=== PATIENT | female | born 1935 ===

== ENCOUNTER 2024-06-26 13:41 | Day surgery (SDC) | payer BC ==
[2024-06-26] MEDS: IRON SUCROSE INJECTION 200 MG in SODIUM CHLORIDE 100 ML IVPB ONE (14:01)
[2024-06-26 16:38] VITALS: BP 112/53; PULSE 62; RESP 18; TEMP 98.5
== END 2024-06-26 15:00 | disposition home or self-care (01) ==
LOC: JONCCHEMO 13:41 → J7W 13:47 → JONCCHEMO 15:00
PROVIDERS: ATTEND Internal Medicine Hematology & Oncology
PROC: 3E033GC Introduction of Other Therapeutic Substance into Peripheral Vein, Percutaneous Approach (ICD-10-PCS; principal; 2024-06-26)
DX: D50.9 Iron deficiency anemia, unspecified (principal)
CPT/HCPCS: 96365; J1756

== ENCOUNTER 2024-07-03 13:49 | Day surgery (SDC) | payer BC ==
[2024-07-03] MEDS: IRON SUCROSE INJECTION 200 MG in SODIUM CHLORIDE 100 ML IVPB ONE (14:05)
[2024-07-03 16:53] VITALS: TEMP 98.4
[2024-07-03 16:57] VITALS: BP 109/55; PULSE 64; RESP 16
== END 2024-07-03 15:10 | disposition home or self-care (01) ==
LOC: JONCNONCHE 13:49 → J7W 13:58 → JONCNONCHE 15:10
PROVIDERS: ATTEND Internal Medicine Hematology & Oncology
PROC: 3E033GC Introduction of Other Therapeutic Substance into Peripheral Vein, Percutaneous Approach (ICD-10-PCS; principal; 2024-07-03)
DX: D50.9 Iron deficiency anemia, unspecified (principal)
CPT/HCPCS: 96365; J1756

== ENCOUNTER 2024-07-10 13:18 | Day surgery (SDC) | payer BC ==
[2024-07-10] MEDS: IRON SUCROSE INJECTION 200 MG in SODIUM CHLORIDE 100 ML IVPB ONE (15:02)
[2024-07-10 16:31] VITALS: RESP 20; TEMP 98.2
[2024-07-10 16:36] VITALS: BP 138/78; PULSE 67
== END 2024-07-10 16:00 | disposition home or self-care (01) ==
LOC: JONCCHEMO 13:18 → J7W 13:19 → JONCCHEMO 16:00
PROVIDERS: ATTEND Internal Medicine Hematology & Oncology
PROC: 3E033GC Introduction of Other Therapeutic Substance into Peripheral Vein, Percutaneous Approach (ICD-10-PCS; principal; 2024-07-10)
DX: D50.9 Iron deficiency anemia, unspecified (principal)
CPT/HCPCS: 96365; J1756